=== PATIENT | female | born 1950 | race Caucasian/White ===

== ENCOUNTER 2017-01-18 09:42 | Emergency (ER) | payer OTHER ==
[~2017-01-18] VITALS: Ht 157.5 cm; Wt 59.5 kg
[2017-01-18 09:45] VITALS: BP 176/96; PULSE 84; RESP 18; O2SAT 100
--- NOTE | 2017-01-18 09:59 | ED.REPORT ---
HPI-Extremity Problem Upper Date of Service Jan 18, 2017 ED Provider: Dr. Murray Pt is a 66 year old female with a hx of ADHD presenting to the ED complaining of pain to her right index finger after accidentally closing her trunk on it just prior to arrival. She denies any other symptoms at this time. Nursing Notes Stated Complaint: INJURED FINGER Chief Complaint: Extremity Trauma Nursing Notes Reviewed: Yes Allergies: Coded Allergies: codeine (Verified Allergy, Unknown, 01/18/17) lavender (Lavandula angustifolia) (Verified Allergy, Unknown, 01/18/17) nickel (Verified Allergy, Unknown, 01/18/17) General Time Seen by MD: 09:59 Chief Complaint Finger injury right 2 Hx Obtained From: Patient Arrived By: Walk-in Onset Occurred: Just prior to arrival Symptom Duration: Since onset Caused by: Crushing injury Context: Occurred at: [facility] Location: : Finger right 2 Quality: Painful Severity: Current: Mild Severity: Maximum: Mild Recent Healthcare: No recent doctor visit, No recent hospitalization Similar Sx Previous: No Past Medical History Past Medical History ADHD Past Surgical History denies Smoking History Unknown if Ever Smoker Ambulatory Status Independent Review of Systems Musculoskeletal: Reports: Extremity pain (2nd finger) Complete sys rev & neg: except as marked. Respiratory: Denies: Shortness of breath GI: Denies: Vomiting Physical Exam Initial Vital Signs Vital Signs (First) Date Time Temp Pulse Resp B/P Pulse Ox O2 Delivery O2 Flow Rate FiO2 01/18/17 09:45 35.8 84 18 176/96 100 Room Air Initial VS: Reviewed General/Constitutional: Well-developed, Well-nourished Head / Eyes: Atraumatic, Normocephalic, PERRL ENT: Mucous membranes moist, Conjunctiva normal, No scleral icterus Neck: Supple Respiratory: No respiratory distress Abdomen / GI: No distention Skin: Warm, Dry, No cyanosis Neurologic: Alert, Oriented, Nonfocal Psychiatric: Mood/affect normal, Behavior normal, Normal thought content Wrist / Hand: Neurologic intact, Vascular intact 2cm laceration to the palmar aspect of the 1st PIP joint. 1cm laceration over the dorsum of PIP joint. Swelling and tenderness. Normal capillary refill and sensation. Interpretation & Diagnostics X-Ray Interpretation Xray Interpretation: IMPRESSION: No acute fracture. No osseous lesion. If clinical suspicion and/or symptoms persist, further assessment with repeat plainfilms, or advanced imaging (e.g., CT, MRI, or bone scan) may be helpful for further assessment. Dictated by: Wandy Lopez M.D. on 01/18/2017 at 10:37 X-Ray Ordered: Hand right Interpretation / Wet Read by: Interpret - Radiologist Procedures Laceration Management Time: 11:13 Procedure Performed by: ED physician Consent / Setup / Site Prep: Consent from patient, Time-out performed, Hand hygiene observed, Stand sterile technique Location of Wound: Right index finger Wound Length: 1 cm, 2 cm Digital Block: No Digit Involved: Index finger right Wound Preparation: Betadine Irrigation: Copious Repair Skin: ___ O (4), Nylon # Sutures - Skin: 2, 3 Post-Procedure / Complications: Antibiotic oint applied, Dressing applied, No complications, Condition improved, Tolerated procedure well, Patient stable Re-Eval/Medical Decision Re-Evaluation/Progress #1: Time of Eval: 10:12 Patient Status: Condition improved Re-Evaluation/Progress Note: Used lidocaine 1% without epi to numb the area of the laceration prior to an X-ray. Re-Evaluation/Progress #2: Time of Eval: 11:13 Patient Status: Condition improved Re-Evaluation/Progress Note: Performed laceration management. Pt tolerated procedure well. Discharge & Departure Impression: Primary Impression: Laceration Disposition: Home Discharge Condition All VS Reviewed: Yes Condition: Improved Patient Instructions: Splint Care (ED) Additional Instructions: Your finger did not appear to be broken on the x ray today. Follow up with Dr. Delaney next week to monitor the healing of your finger. Keep your finger in the splint for 10 days. Apply antibiotic ointment and a sterile dressing daily. You may require occupational therapy to regain strength in your finger, so follow up with Dr. Delaney for that. Return to the ER or followup with your doctor in 10 days for suture removal. Follow up sooner if you notice signs of infection or other concerns. Referrals: Leonidas Delaney MD Attestation Portions of this note were transcribed by Cora Guillen. I, Dr. Murray personally performed the history, physical exam and medical decision-making; I reviewed and confirmed the accuracy of the information in the transcribed note. Signed by: Piedad Nassar, 01/18/2017 at 1149. copies to: Leonidas Delaney MD, Timothy S DO Jan 18, 2017 09:59 CORA GUILLEN Jan 18, 2017 10:11
[2017-01-18] MEDS ORDERED: TdaP Vaccine 0.5 mL Inj IM ONE (10:05)
--- NOTE | 2017-01-18 10:40 | DRSVH ---
PROCEDURE: X-RAY FINGERS, TWO VIEWS INDICATIONS: crush injury rt index finger TECHNIQUE: AP hand, 2 views of the right second finger(s) acquired. COMPARISON: None. FINDINGS: Bones: No acute fractures or dislocations. Small bony fragments adjacent to the distal interphalang eal joint are present, suggestive of chronic sequelae. No suspicious bony lesions. Soft tissues: No suspicious soft tissue calcifications. IMPRESSION: No acute fracture. No osseous lesion. If clinical suspicion and/or symptoms persist, fur ther assessment with repeat plainfilms, or advanced imaging (e.g., CT, MRI, or bone scan) may be help ful for further assessment. Dictated by: Wandy Lopez M.D. on 01/18/2017 at 10:37 Approved by: Wandy Lopez M.D. on 01/18/2017 at 10:38
[2017-01-18 11:48] VITALS: BP 165/64; PULSE 78; RESP 16; O2SAT 98
== END 2017-01-18 11:49 | disposition home or self-care (01) ==
LOC: SED 09:42
DX: S61.210A Laceration without foreign body of right index finger without damage to nail, initial encounter (principal); W22.8XXA Striking against or struck by other objects, initial encounter; Y93.9 Activity, unspecified; Y92.22 Religious institution as the place of occurrence of the external cause; Y99.9 Unspecified external cause status; F90.9 Attention-deficit hyperactivity disorder, unspecified type; Z23 Encounter for immunization; Z88.5 Allergy status to narcotic agent